=== PATIENT | female | born 1950 | race Caucasian/White ===

== ENCOUNTER 2022-04-13 09:00 | Emergency (ER) | payer OTHER ==
[~2022-04-13] VITALS: Ht 172.7 cm; Wt 65.8 kg
[2022-04-13 09:09] VITALS: BP 124/63
--- NOTE | 2022-04-13 09:17 | NUR ---
71/f walked in accompanied by daughter c/o generalized weakness accompanied by weight loss of 40lbs within 1 month. 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 aao4 ambulatory, vitals stable, denies nausea or vomiting. afebrile. 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 PMH: CHOLESTEROL, DM
--- NOTE | 2022-04-13 09:34 | NUR ---
ekg done at bedside. iv established to right ac with 20g.
--- NOTE | 2022-04-13 09:54 | NUR ---
virtual office assistant at bedside for blood draw
[2022-04-13 10:15] LABS: BASOPHILS # (AUTO) 0.1 K/uL (0.00-0.22); BASOPHILS % (AUTO) 0.9 % (0.0-2.0); EOSINOPHILS % (AUTO) 0.4 % (0.0-4.0); HEMOGLOBIN 9.2 g/dL (12.0-16.0); LYMPHOCYTES % (AUTO) 9.9 % (20.5-51.1); MEAN CORPUSCULAR HEMOGLOBIN 30 pg (27-31); MEAN CORPUSCULAR HGB CONC 33 g/dL (33-37); MEAN CORPUSCULAR VOLUME 89.9 fL (80-94); MONOCYTES # (AUTO) 0.9 K/uL (0.8-1.0); MONOCYTES % (AUTO) 9.1 % (1.7-9.3); NEUTROPHILS # (AUTO) 7.7 K/uL (1.8-7.7); NEUTROPHILS % (AUTO) 79.7 % (42.2-75.2); PLATELET COUNT (AUTO) 433 K/uL (140-450); RED BLOOD CELL COUNT(AUTO) 3.11 MIL/uL (4.20-5.40); RED CELL DISTRIBUTION WIDTH 13.5 % (11.6-13.7); WHITE BLOOD COUNT (AUTO) 9.7 K/uL (4.8-10.8)
[2022-04-13 10:16] LABS: APPEARANCE,URINE HAZY (CLEAR); BILIRUBIN,URINE NEGATIVE (NEGATIVE); BLOOD, URINE 1+ (NEGATIVE); COLOR,URINE YELLOW (YELLOW); LEUKOCYTE ESTERASE ,URINE 3+ (NEGATIVE); NITRITE, URINE POSITIVE (NEGATIVE); UGLUCOSE NEGATIVE (NEGATIVE)
[2022-04-13 10:23] LABS: ALBUMIN 2.3 g/dL (3.4-5.0); ANION GAP 13.2 (8-16); CARBON DIOXIDE 26.2 mmol/L (21-32); CREATININE 1.3 mg/dL (0.6-1.3); POTASSIUM 5.4 mmol/L (3.5-5.1); TOTAL BILIRUBIN 0.2 mg/dL (0.0-1.0)
[2022-04-13 10:26] LABS: RBC,URINE NONE SEEN /HPF (0-5); WBC,URINE TOO MANY TO COUNT /HPF (0-5)
[2022-04-13 11:00] VITALS: BP 99/51
[2022-04-13] MEDS ORDERED: NACL 0.9% 1,000 ML IV ONE (11:20)
[2022-04-13] MEDS ORDERED: CEPH-588 PO (11:31)
== END 2022-04-13 12:20 | disposition home or self-care (01) ==
LOC: MED 09:00
DX: D64.9 Anemia, unspecified (principal); N39.0 Urinary tract infection, site not specified; R63.4 Abnormal weight loss; E86.0 Dehydration; E11.9 Type 2 diabetes mellitus without complications; Z79.899 Other long term (current) drug therapy; Z68.22 Body mass index [BMI] 22.0-22.9, adult
CPT/HCPCS: 36415; 71045; 80053; 81001; 83880; 84484; 85025; 87086; 93005; 96360; 99285; J7030; Q0092

== ENCOUNTER 2023-04-26 12:45 | Emergency (ER) | payer OTHER ==
[~2023-04-26] VITALS: Ht 162.6 cm; Wt 73.7 kg
[~2023-04-26 12:45] MED LIST: CEPH-588 PO
[2023-04-26 12:55] VITALS: BP 157/73; PULSE 70; RESP 18; TEMP 97.7; O2SAT 99
[2023-04-26] MEDS ORDERED: ACET-8905 PO (13:52)
[2023-04-26] MEDS ORDERED: IBUP-2213 PO (13:52)
[2023-04-26] MEDS ORDERED: ACETAMINOPHEN 325 MG TAB PO ONE (14:05)
== END 2023-04-26 14:10 | disposition home or self-care (01) ==
LOC: MED 12:45
DX: S92.512A Displaced fracture of proximal phalanx of left lesser toe(s), initial encounter for closed fracture (principal); E11.9 Type 2 diabetes mellitus without complications; Z98.890 Other specified postprocedural states; Z79.2 Long term (current) use of antibiotics; W31.89XA Contact with other specified machinery, initial encounter; Y92.89 Other specified places as the place of occurrence of the external cause; Y93.89 Activity, other specified; Y99.8 Other external cause status
CPT/HCPCS: 73660; 99283